=== PATIENT | female | born 1990 | race African-American/Black ===

== ENCOUNTER 2017-11-19 02:08 | Inpatient (IN) | payer MEDICAID, OTHER ==
[~2017-11-19] VITALS: Ht 177.8 cm; Wt 108.9 kg
[~2017-11-19 02:08] MED LIST: NO MEDS
--- NOTE | 2017-11-19 02:10 | NUR ---
TO BED 9 BIB PARAMEDICS C/O ABD PAIN WITH N/V X 9 WEEKS. PT AAOX4 NO ACUTE DISTRESS NOTED, RESP EVEN AND UNLABORED. PENDING ER MD SANTOS.
--- NOTE | 2017-11-19 02:13 | NUR ---
ER MD AT BEDSIDE TO EVAL PT WITH ORDERS RECEIVED.
--- NOTE | 2017-11-19 02:25 | NUR ---
URINE SAMPLE COLLECTED AND SENT TO LAB.
[2017-11-19] MEDS ORDERED: ONDANSETRON 4 MG TAB.RAPDIS SL ONE (02:30)
[2017-11-19] MEDS ORDERED: LIDOCAINE VISCOUS 2% UD 15 ML UDC MM ONE (02:30)
[2017-11-19] MEDS ORDERED: MAG HYDROX/AL HYDROX/SIMETH 30 ML UDC PO ONE (02:30)
[2017-11-19] MEDS ORDERED: LIDOCAINE VISCOUS 2% UD 15 ML UDC ONE (02:43)
[2017-11-19] MEDS ORDERED: ONDANSETRON 4 MG TAB.RAPDIS ONE (02:43)
[2017-11-19] MEDS ORDERED: MAG HYDROX/AL HYDROX/SIMETH 30 ML UDC ONE (02:43)
[2017-11-19] MEDS ORDERED: METOCLOPRAMIDE HCL 10 MG/2 ML VIAL ONE ×2 (02:50→05:07)
[2017-11-19] MEDS ORDERED: METOCLOPRAMIDE HCL 10 MG/2 ML VIAL IM ONE (03:00)
--- NOTE | 2017-11-19 03:00 | NUR ---
PT STATES "I THINK MY POTASSIUM IS LOW AGAIN". ER MD MADE AWARE WITH ORDERS RECEIVED.
--- NOTE | 2017-11-19 03:20 | NUR ---
BLOOD DRAWN BY SUBSTATION OPERATOR APPRENTICE.
[2017-11-19 03:33] LABS: APPEARANCE,URINE CLEAR (CLEAR); BILIRUBIN,URINE 2+ (NEGATIVE); BLOOD, URINE 1+ Ery/uL (NEGATIVE); COLOR,URINE ORANGE (YELLOW); KETONES,URINE 3+ (NEGATIVE); LEUKOCYTE ESTERASE ,URINE 1+ (NEGATIVE); NITRITE, URINE NEGATIVE (NEGATIVE); PROTEIN,URINE 2+ mg/dl (NEGATIVE); UGLUCOSE NEGATIVE (NEGATIVE)
[2017-11-19 03:40] LABS: BACTERIA,URINE 2+ /HPF (None Seen); SQUAMOUS EPITHELIAL CELL,UR Many /HPF (None Seen); YEAST,URINE Few /HPF (None Seen)
[2017-11-19 03:41] LABS: HYALINE CASTS, URINE Few /LPF (None Seen)
[2017-11-19 04:16] LABS: CALCIUM, SERUM 10.2 mg/dL (8.5-10.1); CREATININE 0.9 mg/dL (0.6-1.3)
[2017-11-19 04:21] LABS: POTASSIUM 2.3 mmol/L (3.5-5.1)
--- NOTE | 2017-11-19 04:25 | NUR ---
STARTED SL 18G TO R HAND.
[2017-11-19] MEDS ORDERED: POTASSIUM CL. PREMIX PERIPHER. 50 ML ONE (04:29)
[2017-11-19] MEDS: POTASSIUM CHLORIDE 10 MEQ/50 ML PREMIXED IVPB FOR PERIPHERAL LINE IV ONE ×2 (04:43→05:12)
--- NOTE | 2017-11-19 04:51 | NUR ---
ER SPOKE TO [facility] REGARDING PT ADMISSION. WILL CALL FOR REPORT.
--- NOTE | 2017-11-19 04:51 | NUR ---
TELE [id number]
[2017-11-19 04:52] LABS: BASOPHILS % (AUTO) 0.3 % (0.0-2.0); EOSINOPHILS % (AUTO) 0.1 % (0.0-6.0); HEMATOCRIT 42 % (33-45); LYMPHOCYTES # (AUTO) 1.5 /CMM (0.8-4.8); LYMPHOCYTES % (AUTO) 11.1 % (20.0-44.0); MEAN CORPUSCULAR HGB CONC 34 g/dl (31.0-36.0); MEAN CORPUSCULAR VOLUME 89 fL (82-100); MONOCYTES # (AUTO) 0.8 /CMM (0.1-1.30); NEUTROPHILS # (AUTO) 10.9 /CMM (1.8-8.9); NEUTROPHILS % (AUTO) 82.5 % (43.0-81.0); PLATELET COUNT (AUTO) 269 /CMM (150-450); RDW COEFFICIENT OF VARIATION 15.2 (11.5-15.0); RED BLOOD CELL COUNT(AUTO) 4.69 MIL/uL (4.0-5.2); WHITE BLOOD COUNT (AUTO) 13.2 K/uL (4.3-11.0)
[2017-11-19] MEDS ORDERED: NITROFURANTOIN/NITROFURAN MAC 100 MG CAPSULE PO ONE (05:00)
[2017-11-19] MEDS ORDERED: IV NS 0.9% 1,000 ML BAG IV ONE (05:00)
[2017-11-19] MEDS ORDERED: ACETAMINOPHEN 325 MG TABLET PO PRN (05:00)
[2017-11-19] MEDS ORDERED: NITROFURANTOIN/NITROFURAN MAC 100 MG CAPSULE ONE (05:07)
--- NOTE | 2017-11-19 05:10 | NUR ---
REPORT CALLED TO PHOTO TECHNOLOGISTMECHELLE MONTENEGRO. WILL TRANSPORT PT VIA ACLS PROTOCOL.
--- NOTE | 2017-11-19 05:12 | NUR ---
NS 1000ML IV BOLUS AND POTASSIUM 30MEQ IVPB ENDORSED TO FIELD [employer] SUPERVISORMECHELLE MONTENEGRO
[2017-11-19] MEDS ORDERED: POTASSIUM CL. PREMIX PERIPHER. 150 ML ONE (05:14)
[2017-11-19] MEDS ORDERED: METOCLOPRAMIDE HCL 10 MG/2 ML VIAL IV ONE (05:30)
--- NOTE | 2017-11-19 05:50 | NUR ---
MS RN NOTE RECEIVED PATIENT FROM ER FOR ADMISSION, PATIENT IS ALERT AND ORIENTEDX4, NO S/S OF RESPIRATORY DISTRESS AND COMPLAINS OF HEARTBURN AND NAUSEA. SHE IS 16 WKS , , NO PAIN REPORTED. IV ON LEFT HAND IS PATENT AND INTACT, WILL CONNECT TO THE FLUID. SKIN IS INTACT AND WARM TO TOUCH, NO EDEMA PRESENT. SRX2, BED IN LOW POSITION, CALL LIGHT WITHIN REACH, WILL CONTINUE TO MONITOR PATIENT.
[2017-11-19 06:00] VITALS: BP 160/84
[2017-11-19] MEDS: IV NS 0.9% 1,000 ML IV PRN ×2 (06:05→18:16)
--- NOTE | 2017-11-19 06:40 | NUR ---
MS RN NOTE PATIENT'S IV SITE ON LEFT HAND GOT SWOLLEN AND INFILTRATED. REINSERTED ON RIGHT WRIST 20G, GOOD BLOOD RETURN PRESENT. WILL ENDORSE TO DAY SHIFT NURSE TO F/U 2XK BAGS.
--- NOTE | 2017-11-19 07:20 | NUR ---
M/S RN - Assessment Patient in bed awake, A/O x 4, denies pain, no c/o n/v, tolerating full liquid diet, no apparent distress seen. Patient here for hypokalemia/UTI, KCl IVPB infusing at this time, will need 2 more bags to complete 40 meq dose. All needs attended and met. Will continue with current medical management.
[2017-11-19] MEDS ORDERED: PANTOPRAZOLE 40 MG TABLET.DR PO SCH (07:30)
[2017-11-19 08:00] VITALS: BP 136/95
[2017-11-19] MEDS: CEPHALEXIN MONOHYDRATE 500 MG CAPSULE PO SCH ×2 (08:09→17:10)
[2017-11-19 15:22] LABS: CALCIUM, SERUM 9.5 mg/dL (8.5-10.1); CREATININE 0.8 mg/dL (0.6-1.3)
[2017-11-19 15:29] LABS: POTASSIUM 2.3 mmol/L (3.5-5.1)
[2017-11-19 16:00] VITALS: BP 124/98
[2017-11-19] MEDS ORDERED: POTASSIUM CHLORIDE 10 MEQ/50 ML PREMIXED IVPB FOR PERIPHERAL LINE IV ONE (17:00)
[2017-11-19] MEDS ORDERED: POTASSIUM CHLORIDE 20 MEQ TAB.PRT.SR PO ONE (17:00)
[2017-11-19] MEDS: Potassium Chloride 10 MEQ in IV D5W 50 ML IV SCH ×5 (17:10→23:11)
--- NOTE | 2017-11-19 19:00 | NUR ---
MS RN INITIAL NOTES: Patient received in bed, resting. Alert, oriented x 4. Breathing even and unlabored. No distress noted. Stated that she is feeling nauseous. Peripheral IV infusing well. Call urbina within reach. Bed in low , locked position. Patient stable as endirsed by the morning shift RN.
[2017-11-19] MEDS: ONDANSETRON HCL/PF 4 MG/2 ML VIAL IVP PRN (19:22)
--- NOTE | 2017-11-19 19:26 | NUR ---
MS RN NOTES: Patient complaining of nausea. Zofran given as ordered.
[2017-11-19 20:00] VITALS: BP 122/68
--- NOTE | 2017-11-19 21:11 | NUR ---
MS RN NOTES: Potassium Chloride not given yet as IV SITE on L hand leaking. Taken out.
--- NOTE | 2017-11-19 22:00 | NUR ---
RN NOTES NEW IV LINE INSERTED ON THE LEFT FOREARM # 22
[2017-11-19] MEDS: MAG HYDROX/AL HYDROX/SIMETH 30 ML UDC PO PRN (22:08)
--- NOTE | 2017-11-19 22:10 | NUR ---
MS RN NOTES: Patient requesting for Maalox. Spoke to Steffen Bartlett and got an order.
[2017-11-20] MEDS: Potassium Chloride 10 MEQ in IV D5W 50 ML IV SCH (00:09)
[2017-11-20] MEDS: ONDANSETRON HCL/PF 4 MG/2 ML VIAL IVP PRN ×2 (05:35→14:01)
--- NOTE | 2017-11-20 05:38 | NUR ---
MS RN NOTES: Patient is experiencing nausea and vomiting. Zofran given as ordered.
--- NOTE | 2017-11-20 06:30 | NUR ---
MS RN CLOSING NOTES: Patient in bed, asleep, but easily arousable. Alert, oriented x 4. Breathing even and unlabored. Not in any distress. No complaints of nausea and vomiting as of this time. Peripheral IV infusing at 75mL/hr. All needs attended to. All due medications given as ordered. Will endorse continuity of care to the morning shift RN.
[2017-11-20] MEDS: MAG HYDROX/AL HYDROX/SIMETH 30 ML UDC PO PRN (06:47)
[2017-11-20 06:49] LABS: BASOPHILS % (AUTO) 0.4 % (0.0-2.0); EOSINOPHILS % (AUTO) 0.2 % (0.0-6.0); HEMATOCRIT 36 % (33-45); HEMOGLOBIN 12.4 g/dL (11.5-14.8); LYMPHOCYTES # (AUTO) 1.9 /CMM (0.8-4.8); LYMPHOCYTES % (AUTO) 18.2 % (20.0-44.0); MEAN CORPUSCULAR HGB CONC 34 g/dl (31.0-36.0); MEAN CORPUSCULAR VOLUME 89 fL (82-100); MONOCYTES # (AUTO) 0.9 /CMM (0.1-1.30); NEUTROPHILS # (AUTO) 7.5 /CMM (1.8-8.9); NEUTROPHILS % (AUTO) 72.2 % (43.0-81.0); PLATELET COUNT (AUTO) 216 /CMM (150-450); RDW COEFFICIENT OF VARIATION 15.1 (11.5-15.0); RED BLOOD CELL COUNT(AUTO) 4.07 MIL/uL (4.0-5.2); WHITE BLOOD COUNT (AUTO) 10.4 K/uL (4.3-11.0)
--- NOTE | 2017-11-20 06:54 | NUR ---
MS RN NOTES: Patient complaining of discomfort and acid reflux, maalox given as ordered.
[2017-11-20 07:09] LABS: MAGNESIUM 1.9 mg/dL (1.8-2.4); PHOSPHORUS 3.2 mg/dL (2.5-4.9)
--- NOTE | 2017-11-20 07:15 | NUR ---
RN NOTES PT IS LAYING DOWN IN BED, RESTING COMFORTABLY. PT ON RA, RESPIRATIONS ARE EVEN AND UNLABORED. IV ON LFA INTACT AND RUNNING NS @ 50ML/HR. NO SIGNS OF DISTRESS NOTED. SAFETY MEASURES ARE IN PLACE, CALL LIGHT IS IN REACH. WILL CONTINUE TO MONITOR.
[2017-11-20 08:00] VITALS: BP_SYST 127; BP_DIAS 82; BP_DIAS 87
[2017-11-20] MEDS: CEPHALEXIN MONOHYDRATE 500 MG CAPSULE PO SCH (08:59)
[2017-11-20] MEDS ORDERED: FAMOTIDINE (20 MG) 20 MG TABLET PO SCH (09:00)
[2017-11-20 09:29] LABS: CALCIUM, SERUM 9.1 mg/dL (8.5-10.1); CREATININE 0.6 mg/dL (0.6-1.3)
[2017-11-20 09:35] LABS: POTASSIUM 2.4 mmol/L (3.5-5.1)
[2017-11-20] MEDS ORDERED: POTASSIUM CHLORIDE 20 MEQ TAB.PRT.SR PO ONE ×2 (10:30→11:00)
[2017-11-20] MEDS: POTASSIUM CL. PREMIX PERIPHER. 50 ML IV SCH ×5 (10:40→14:30)
--- NOTE | 2017-11-20 11:29 | NUR ---
RN NOTES 40 MEQ POTASSIUM ORDER NOT IN OMNICELL. SPOKE WITH PHARMACIST WHO REORDERED THE POTASSIUM. FULL 40 MEQ DOSE GIVEN ORDERED, SECOND DOSE ORDERED NON-ADMIN.
[2017-11-20] MEDS ORDERED: POTASSIUM CHLORIDE 20 MEQ POWDER PACKET PO ONE ×2 (12:00→13:00)
--- NOTE | 2017-11-20 15:30 | NUR ---
RN NOTES PT LEFT AGAINST MEDICAL ADVICE, AFTER SPEAKING WITH THE RN AND THE MD. BOTH ADVISED PT IT WOULD BE BETTER TO STAY IN ORDER TO RECHECK THE POTASSIUM AND CONTINUE TO REPLETE. PT STATES THAT SHE DOESNT WANT TO STAY BECAUSE HER POTASSIUM IS ALWAYS LOW AND WANTS TO GO HOME TO SEE HER DAUGHTER. IV AND ID BAND WERE REMOVED. PT GIVEN DISCHARGE PAPERS AND EDUCATION. AMA PAPER WAS SIGNED AND PT WENT HOME WITH ALL OF HER BELONGINGS.
== END 2017-11-20 15:30 | disposition left against medical advice (07) | DRG 566 ==
LOC: ER 02:09 → TELE 05:09 → MED 05:13
PROVIDERS: ADMIT Nurse Practitioner Acute Care; ATTEND Nurse Practitioner Acute Care
DX: O23.42 Unspecified infection of urinary tract in pregnancy, second trimester (principal); E66.9 Obesity, unspecified; Z68.34 Body mass index [BMI] 34.0-34.9, adult; O21.1 Hyperemesis gravidarum with metabolic disturbance; O99.282 Endocrine, nutritional and metabolic diseases complicating pregnancy, second trimester; O99.212 Obesity complicating pregnancy, second trimester; O99.612 Diseases of the digestive system complicating pregnancy, second trimester; Z3A.16 16 weeks gestation of pregnancy; K21.9 Gastro-esophageal reflux disease without esophagitis
CPT/HCPCS: 36415; 80048-TC; 81000-TC; 83735-TC; 84100-TC; 85025-TC; 87081-TC; 87086-TC; A4606; J2405; J2765; J3480; J7030; J7060; Q0162; Z7610